=== PATIENT | female | born 1940 | race Caucasian/White ===

== ENCOUNTER 2018-05-10 17:48 | Emergency (ER) | payer MEDICARE, OTHER ==
[~2018-05-10] VITALS: Ht 167.6 cm; Wt 56.8 kg
[~2018-05-10 17:48] MED LIST: AMLO1TAB53 PO; ASPI-612 PO; CALC1TAB41 PO; ESCI10TA54 PO; LACT1CAP65 PO; MULT-1133 PO; POTA10TA36 PO; SIMV10TA6 PO
[2018-05-10 18:16] LABS: BASOPHILS % (AUTO) 0.5 % (0-1); EOSINOPHILS # (AUTO) 0.1 X10'3 (0-0.9); EOSINOPHILS % (AUTO) 1.5 % (0-6); HEMATOCRIT 38.7 % (35.0-45.0); HEMOGLOBIN 13.8 g/dl (12.0-16.0); LYMPHOCYTES # (AUTO) 1.6 X10'3 (1.1-4.8); MEAN CORPUSCULAR HEMOGLOBIN 32.4 PG (27.0-31.0); MEAN CORPUSCULAR HGB CONC 35.5 % (33.0-36.5); MEAN CORPUSCULAR VOLUME 91.2 FL (78-98); MEAN PLATELET VOLUME 6.1 FL (7.4-10.4); MONOCYTES # (AUTO) 0.6 X10'3 (0-0.9); MONOCYTES % (AUTO) 7.1 % (2-12); NEUTROPHILS # (AUTO) 5.5 X10'3 (1.8-7.7); NEUTROPHILS % (AUTO) 70.9 % (42-75); PLATELET COUNT 240 X10'3 (140-440); RED BLOOD COUNT 4.25 X10'6 (4.20-5.60); RED CELL DISTRIBUTION WIDTH 12.4 % (11.5-14.5); WHITE BLOOD COUNT 7.8 X10'3 (4.5-11.0)
[2018-05-10 18:26] LABS: PARTIAL THROMBOPLASTIN TIME 26 SECONDS (22-32); PROTHROMBIN TIME 10.2 SECONDS (9.0-12.0)
[2018-05-10 18:36] LABS: ALANINE AMINOTRANSFERASE 29 U/L (12-78); ALBUMIN 4.1 G/DL (3.4-5.0); ALBUMIN/GLOBULIN RATIO 1.3 (1.1-1.5); ALKALINE PHOSPHATASE 83 IU/L (46-116); ANION GAP 11 (8-16); ASPARTATE AMINO TRANSFERASE 22 U/L (10-37); BILIRUBIN,TOTAL 0.8 MG/DL (0.1-1.0); BLOOD UREA NITROGEN 8 MG/DL (7-18); BUN/CREATININE RATIO 11.6 (6.6-38.0); CALCIUM 9.2 MG/DL (8.5-10.1); CHLORIDE 93 MMOL/L (99-107); CREATININE 0.69 MG/DL (0.40-0.90); POTASSIUM 3.3 MMOL/L (3.5-5.1); SODIUM 128 MMOL/L (135-145); TOTAL CARBON DIOXIDE 24.3 MMOL/L (24-32); TOTAL PROTEIN 7.3 G/DL (6.4-8.2); eGFR 83 ML/MIN
[2018-05-10 18:37] LABS: GLUCOSE 129 MG/DL (70-104)
[2018-05-10 21:32] VITALS: BP 160/57
== END 2018-05-10 21:34 | disposition home or self-care (01) ==
LOC: ER 17:49
DX: F41.9 Anxiety disorder, unspecified (principal); E87.1 Hypo-osmolality and hyponatremia; F17.200 Nicotine dependence, unspecified, uncomplicated; I10 Essential (primary) hypertension; E78.00 Pure hypercholesterolemia, unspecified; Z90.89 Acquired absence of other organs; Z88.1 Allergy status to other antibiotic agents; Z88.2 Allergy status to sulfonamides; Z79.82 Long term (current) use of aspirin; Z79.899 Other long term (current) drug therapy
CPT/HCPCS: 36415; 71046; 80053; 84484; 85025; 85610; 85730; 93005; 99285

== ENCOUNTER 2018-07-30 17:15 | Inpatient (IN) | payer MEDICARE, OTHER ==
[~2018-07-30] VITALS: Ht 165.1 cm; Wt 56.0 kg
[~2018-07-30 17:15] MED LIST changes: +AMLO-363 PO; -AMLO1TAB53 PO
[2018-07-30 17:39] LABS: BASOPHILS % (AUTO) 0.6 % (0-1); EOSINOPHILS # (AUTO) 0.1 X10'3 (0-0.9); EOSINOPHILS % (AUTO) 1.5 % (0-6); HEMATOCRIT 39.7 % (35.0-45.0); HEMOGLOBIN 13.5 g/dl (12.0-16.0); LYMPHOCYTES # (AUTO) 1.7 X10'3 (1.1-4.8); LYMPHOCYTES % (AUTO) 20.5 % (21-51); MEAN CORPUSCULAR HEMOGLOBIN 31.6 PG (27.0-31.0); MEAN CORPUSCULAR VOLUME 92.9 FL (78-98); MONOCYTES # (AUTO) 0.6 X10'3 (0-0.9); NEUTROPHILS # (AUTO) 5.8 X10'3 (1.8-7.7); NEUTROPHILS % (AUTO) 70.4 % (42-75); PLATELET COUNT 228 X10'3 (140-440); RED BLOOD COUNT 4.28 X10'6 (4.20-5.60); RED CELL DISTRIBUTION WIDTH 12.6 % (11.5-14.5); WHITE BLOOD COUNT 8.3 X10'3 (4.5-11.0)
[2018-07-30 17:52] LABS: ALANINE AMINOTRANSFERASE 28 U/L (12-78); ALBUMIN/GLOBULIN RATIO 1.4 (1.1-1.5); ALKALINE PHOSPHATASE 89 IU/L (46-116); ANION GAP 12 (8-16); ASPARTATE AMINO TRANSFERASE 24 U/L (10-37); BILIRUBIN,TOTAL 0.8 MG/DL (0.1-1.0); BLOOD UREA NITROGEN 11 MG/DL (7-18); BUN/CREATININE RATIO 15.7 (6.6-38.0); CALCIUM 8.9 MG/DL (8.5-10.1); CHLORIDE 90 MMOL/L (99-107); POTASSIUM 3.4 MMOL/L (3.5-5.1); SODIUM 127 MMOL/L (135-145); TOTAL CARBON DIOXIDE 25.3 MMOL/L (24-32); TOTAL PROTEIN 6.9 G/DL (6.4-8.2); eGFR 82 ML/MIN
[2018-07-30 17:53] LABS: GLUCOSE 103 MG/DL (70-104)
[2018-07-30 17:55] LABS: PARTIAL THROMBOPLASTIN TIME 25 SECONDS (22-32); PROTHROMBIN TIME 10.1 SECONDS (9.0-12.0)
[2018-07-30] MEDS ORDERED: ROSU10TA PO (19:16)
[2018-07-30] MEDS ORDERED: AMLO2.5T2 PO (19:16)
[2018-07-30] MEDS ORDERED: DULO-31 PO (19:16)
[2018-07-30] MEDS ORDERED: IRBE1TAB31 PO (19:16)
[2018-07-30] MEDS ORDERED: potassium Cl 40MEQ/NS 500ml 500 ML IV PRN ×2 (20:30)
[2018-07-30] MEDS ORDERED: HYDROmorphone 1 mg/ml syringe IV PRN ×2 (20:30)
[2018-07-30] MEDS ORDERED: morphine 2 MG/ML inj. syringe IV PRN ×2 (20:30)
[2018-07-30] MEDS ORDERED: acetaminophen 650mg rectal suppository RC PRN (20:30)
[2018-07-30] MEDS ORDERED: mag hydrox/Alum hydrox/simeth 30ml oral suspension PO PRN (20:30)
[2018-07-30] MEDS ORDERED: HYDROcodone/acetaminophen 10/325mg tab PO PRN (20:30)
[2018-07-30] MEDS: aspirin 81mg tab.chew PO SCH (20:30)
[2018-07-30] MEDS ORDERED: potassium Cl 20mEq in NS 1,000 ML IV SCH (20:30)
[2018-07-30] MEDS ORDERED: metoclopramide 5 mg/ml inj IV PRN (20:30)
[2018-07-30] MEDS ORDERED: ondansetron/PF 4mg/2ml inj IV PRN (20:30)
[2018-07-30] MEDS ORDERED: acetaminophen 325mg tablet PO PRN (20:30)
[2018-07-30] MEDS ORDERED: diphenhydrAMINE 50 mg/ml inj IV PRN (20:30)
[2018-07-30] MEDS ORDERED: magnesium hydroxide 30ml (MOM) UD suspension PO PRN (20:30)
[2018-07-30] MEDS ORDERED: diphenhydrAMINE 25mg capsule PO PRN (20:30)
[2018-07-30] MEDS ORDERED: HYDROcodone/acetaminophen 5mg/325mg tablet PO PRN (20:30)
[2018-07-30] MEDS ORDERED: potassium Cl 20 mEq SR tablet PO PRN ×2 (20:30)
[2018-07-30] MEDS ORDERED: bisacodyl 10mg suppository rectal RC PRN (20:30)
[2018-07-30] MEDS ORDERED: aminophylline 250mg/10ml inj. IV PRN (20:35)
[2018-07-30] MEDS ORDERED: nitroGLYCERIN 0.4mg SUBLingual tab SL PRN (20:35)
[2018-07-30] MEDS ORDERED: metoprolol tartrate 1mg/ml inj IV PRN ×2 (20:35→20:50)
[2018-07-30] MEDS ORDERED: regadenoson 0.4mg/5ml syringe IV ONE (20:35)
[2018-07-30 20:46] LABS: LIPASE 285 U/L (73-393); PHOSPHORUS 3.5 MG/DL (2.3-4.5)
[2018-07-30] MEDS ORDERED: temazepam 15mg capsule PO PRN (21:00)
[2018-07-30 21:15] LABS: D-DIMER < 0.19 MG/L FEU (0-0.50)
[2018-07-30 21:30] VITALS: BP 152/65
[2018-07-31] VITALS (12 sets, daily range): BP systolic 106–146; BP diastolic 47–88
[2018-07-31 05:26] LABS: BASOPHILS % (AUTO) 0.4 % (0-1); EOSINOPHILS # (AUTO) 0.2 X10'3 (0-0.9); EOSINOPHILS % (AUTO) 2.9 % (0-6); HEMATOCRIT 38.6 % (35.0-45.0); LYMPHOCYTES # (AUTO) 2.6 X10'3 (1.1-4.8); LYMPHOCYTES % (AUTO) 35.1 % (21-51); MEAN CORPUSCULAR HEMOGLOBIN 31.5 PG (27.0-31.0); MEAN CORPUSCULAR HGB CONC 33.8 % (33.0-36.5); MEAN CORPUSCULAR VOLUME 93.4 FL (78-98); MEAN PLATELET VOLUME 6.8 FL (7.4-10.4); MONOCYTES # (AUTO) 0.7 X10'3 (0-0.9); MONOCYTES % (AUTO) 9.7 % (2-12); NEUTROPHILS # (AUTO) 3.8 X10'3 (1.8-7.7); NEUTROPHILS % (AUTO) 51.9 % (42-75); PLATELET COUNT 234 X10'3 (140-440); RED BLOOD COUNT 4.13 X10'6 (4.20-5.60); RED CELL DISTRIBUTION WIDTH 12.2 % (11.5-14.5); WHITE BLOOD COUNT 7.3 X10'3 (4.5-11.0)
[2018-07-31 05:38] LABS: ALANINE AMINOTRANSFERASE 24 U/L (12-78); ALBUMIN 3.4 G/DL (3.4-5.0); ALBUMIN/GLOBULIN RATIO 1.3 (1.1-1.5); ALKALINE PHOSPHATASE 75 IU/L (46-116); ANION GAP 2 (8-16); ASPARTATE AMINO TRANSFERASE 18 U/L (10-37); BILIRUBIN,TOTAL 0.7 MG/DL (0.1-1.0); BLOOD UREA NITROGEN 8 MG/DL (7-18); CALCIUM 8.7 MG/DL (8.5-10.1); CHLORIDE 98 MMOL/L (99-107); POTASSIUM 4.4 MMOL/L (3.5-5.1); SODIUM 130 MMOL/L (135-145); TOTAL CARBON DIOXIDE 29.8 MMOL/L (24-32); TOTAL PROTEIN 6.1 G/DL (6.4-8.2); eGFR 70 ML/MIN
[2018-07-31 06:53] LABS: GLUCOSE 92 MG/DL (70-104)
[2018-07-31] MEDS ORDERED: nitroGLYCERIN 0.2mg/hour patch TD SCH (08:00)
[2018-07-31] MEDS ORDERED: non-formulary drug (Rosuvastatin Calcium* (Crestor*) 1 TAB) PO SCH (08:00)
[2018-07-31] MEDS ORDERED: duloxetine 30mg CAPSULE.DR PO SCH (08:00)
[2018-07-31] MEDS ORDERED: docusate sod 100mg capsule PO SCH (08:00)
[2018-07-31] MEDS ORDERED: K and/or MAG REPLACEMENT MC SCH (08:00)
[2018-07-31] MEDS: atorvastatin 20mg tablet PO SCH ×2 (08:00→11:33)
[2018-07-31] MEDS ORDERED: enoxaparin 100mg/ml syringe SQ SCH (08:00)
[2018-07-31] MEDS ORDERED: nicotine 21mg patch - 24 hr TD SCH (08:00)
[2018-07-31] MEDS ORDERED: amLODIPine 5mg tablet PO SCH (08:00)
[2018-07-31] MEDS ORDERED: aminophylline inj. 0 ML IV ONE (08:58)
[2018-07-31] MEDS ORDERED: regadenoson 0.4mg/5ml syringe IV ONE (08:59)
[2018-07-31] MEDS ORDERED: magnesium 4gm in 100ml NS 100 ML IV PRN (09:25)
[2018-07-31] MEDS ORDERED: magnesium Cl slow-release 64mg tablet PO PRN (09:25)
[2018-07-31 10:03] LABS: MAGNESIUM 1.6 MG/DL (1.5-2.4)
[2018-07-31] MEDS ORDERED: iohexol 300mg/ml 100ml inj. ONE (10:29)
[2018-07-31] MEDS ORDERED: enoxaparin 60mg/0.6ml syringe SUBCUT SCH (11:27)
[2018-07-31] MEDS: aspirin 81mg tab.chew PO SCH (11:33)
[2018-07-31] MEDS ORDERED: ASPI-1265 PO (13:50)
== END 2018-07-31 14:30 | disposition home or self-care (01) | DRG 641 ==
LOC: ER 17:15 → ORTHO 4S 20:30
PROVIDERS: ADMIT Family Medicine; ATTEND Family Medicine
PROC: 4A02XM4 Measurement of Cardiac Total Activity, External Approach (ICD-10-PCS; principal; 2018-07-31)
PROC: 3E033HZ Introduction of Radioactive Substance into Peripheral Vein, Percutaneous Approach (ICD-10-PCS; 2018-07-31)
PROC: BW241ZZ Computerized Tomography (CT Scan) of Chest and Abdomen using Low Osmolar Contrast (ICD-10-PCS; 2018-07-31)
DX: E87.1 Hypo-osmolality and hyponatremia (principal); I50.32 Chronic diastolic (congestive) heart failure; F41.0 Panic disorder [episodic paroxysmal anxiety]; R07.89 Other chest pain; I11.0 Hypertensive heart disease with heart failure; E78.00 Pure hypercholesterolemia, unspecified; E78.5 Hyperlipidemia, unspecified; J44.9 Chronic obstructive pulmonary disease, unspecified; R91.1 Solitary pulmonary nodule; E86.0 Dehydration; E87.6 Hypokalemia; F17.200 Nicotine dependence, unspecified, uncomplicated; Z88.1 Allergy status to other antibiotic agents; Z88.2 Allergy status to sulfonamides; Z79.899 Other long term (current) drug therapy; Z82.5 Family history of asthma and other chronic lower respiratory diseases; Z80.3 Family history of malignant neoplasm of breast; Z82.49 Family history of ischemic heart disease and other diseases of the circulatory system; Z71.6 Tobacco abuse counseling
CPT/HCPCS: 36415; 71045; 71260; 78452; 80053; 83690; 83735; 84100; 84443; 84484; 85025; 85379; 85610; 85730; 87070; 93005; 93017; 99285; A9500; J0280; Q9967

== ENCOUNTER 2018-08-08 20:50 | Emergency (ER) | payer MEDICARE, OTHER ==
[~2018-08-08] VITALS: Ht 165.1 cm; Wt 53.2 kg
[~2018-08-08 20:50] MED LIST changes: -AMLO-363 PO; +AMLO2.5T2 PO; +ASPI-1265 PO; -ASPI-612 PO; -CALC1TAB41 PO; +DULO-31 PO; -ESCI10TA54 PO; +IRBE1TAB31 PO; -LACT1CAP65 PO; -MULT-1133 PO; -POTA10TA36 PO; +ROSU10TA PO; -SIMV10TA6 PO
[2018-08-08] MEDS ORDERED: famotidine/PF 10 mg/ml inj IV ONE (21:30)
[2018-08-08 21:46] LABS: BASOPHILS % (AUTO) 0.4 % (0-1); EOSINOPHILS # (AUTO) 0.3 X10'3 (0-0.9); EOSINOPHILS % (AUTO) 3.8 % (0-6); HEMATOCRIT 41.9 % (35.0-45.0); HEMOGLOBIN 14.2 g/dl (12.0-16.0); LYMPHOCYTES # (AUTO) 1.8 X10'3 (1.1-4.8); MEAN CORPUSCULAR HEMOGLOBIN 31.5 PG (27.0-31.0); MEAN CORPUSCULAR HGB CONC 33.9 % (33.0-36.5); MEAN CORPUSCULAR VOLUME 92.8 FL (78-98); MEAN PLATELET VOLUME 6.7 FL (7.4-10.4); MONOCYTES # (AUTO) 0.8 X10'3 (0-0.9); MONOCYTES % (AUTO) 10.8 % (2-12); NEUTROPHILS # (AUTO) 4.8 X10'3 (1.8-7.7); PLATELET COUNT 275 X10'3 (140-440); RED BLOOD COUNT 4.51 X10'6 (4.20-5.60); RED CELL DISTRIBUTION WIDTH 12.8 % (11.5-14.5); WHITE BLOOD COUNT 7.7 X10'3 (4.5-11.0)
[2018-08-08 22:01] LABS: ALANINE AMINOTRANSFERASE 33 U/L (12-78); ALBUMIN 4.3 G/DL (3.4-5.0); ALBUMIN/GLOBULIN RATIO 1.3 (1.1-1.5); ALKALINE PHOSPHATASE 104 IU/L (46-116); ANION GAP 13 (8-16); ASPARTATE AMINO TRANSFERASE 25 U/L (10-37); BILIRUBIN,TOTAL 0.4 MG/DL (0.1-1.0); BLOOD UREA NITROGEN 11 MG/DL (7-18); BUN/CREATININE RATIO 11.8 (6.6-38.0); CALCIUM 8.9 MG/DL (8.5-10.1); CHLORIDE 91 MMOL/L (99-107); CREATININE 0.93 MG/DL (0.40-0.90); LIPASE 388 U/L (73-393); POTASSIUM 3.3 MMOL/L (3.5-5.1); SODIUM 129 MMOL/L (135-145); TOTAL CARBON DIOXIDE 25.3 MMOL/L (24-32); TOTAL PROTEIN 7.7 G/DL (6.4-8.2); eGFR 59 ML/MIN
[2018-08-08 22:03] LABS: GLUCOSE 104 MG/DL (70-104)
[2018-08-08 22:04] LABS: INR 0.9 INR; PARTIAL THROMBOPLASTIN TIME 26 SECONDS (22-32); PROTHROMBIN TIME 9.6 SECONDS (9.0-12.0)
[2018-08-08 22:08] LABS: CLARITY,URINE CLEAR (Clear); COLOR,URINE YELLOW (Yellow); GLUCOSE, URINE NEGATIVE (Neg); KETONES,URINE NEGATIVE (Neg); LEUKOCYTE ESTERASE ,URINE SMALL (Neg); NITRITES, URINE NEGATIVE (Neg); OCCULT BLOOD,URINE NEGATIVE (Neg); PROTEIN,URINE NEGATIVE (Neg); UROBILINOGEN,URINE 0.2 E.U/dL (0.2-1.0)
[2018-08-08 22:23] LABS: UA COLLECTION TYPE CLN CATCH MIDSTREAM
[2018-08-08 22:24] LABS: BACTERIA,URINE NONE SEEN /HPF (Neg); RBC,URINE NONE SEEN /HPF (0-2); SQUAMOUS EPITHELIAL CELL,UR NONE SEEN /LPF (FEW); WBC,URINE 0-4 /HPF (0-4)
[2018-08-08 22:37] VITALS: BP 135/65
== END 2018-08-08 22:48 | disposition home or self-care (01) ==
LOC: ER 20:50
DX: R10.13 Epigastric pain (principal); E78.00 Pure hypercholesterolemia, unspecified; I10 Essential (primary) hypertension; F41.9 Anxiety disorder, unspecified; F41.0 Panic disorder [episodic paroxysmal anxiety]; Z87.11 Personal history of peptic ulcer disease; Z90.89 Acquired absence of other organs; Z88.1 Allergy status to other antibiotic agents; Z88.2 Allergy status to sulfonamides
CPT/HCPCS: 36415; 80053; 81001; 83690; 85025; 85610; 85730; 87088; 96374; 99284; J3490